=== PATIENT | female | born 1940 | race Caucasian/White ===

== ENCOUNTER 2016-08-05 09:24 | Inpatient (IN) | payer OTHER, BC ==
[~2016-08-05] VITALS: Ht 152.4 cm; Wt 86.8 kg
[~2016-08-05 09:24] MED LIST: ACTOS45 MG PO; AMLODIPINE BESY10 MG PO; Ascorbic Acid,Ester- PO; Benadryl PO; CARVEDILOL12.5 MG PO; CELEBREX200 MG PO; COREG12.5 M1 PO; CRESTOR10 MG PO; CRESTOR5 MG PO; CYMBALTA60 MG PO; Coreg PO; Coumadin,Jantoven PO; Cymbalta PO; DOXYCYCLINE HY100 MG PO; Dulcolax PR; FEOSOL325 MG PO; FUROSEMIDE40 MG PO; Feosol PO; Folvite PO; GLIPIZIDE10 MG PO; GLUCAGEN1 MG IM/SC; GLUCOPHAGE500 MG PO; GLUCOTROL10 MG PO; Glucophage PO; Glucotrol PO; LASIX40 MG PO; LIDODERM 5% P1 PATCH TD; LORAZEPAM0.5 MG PO; LOTREL 10/41 CAPSULE PO; Lasix PO; Lotrel 5/20 PO; MEDROL DOSEPAK4 MG PO; METFORMIN HCL500 MG PO; Maalox, Mylanta PO; Milk Of Magnesia,MOM PO; NOVOLOG PE100 UNITS/ SC; OMEPRAZOLE20 MG PO; OXAYDO5 MG PO; OxyCONTIN PO; PERCOCET 5/31 TABLET PO; PRILOSEC20 MG PO; Protonix PO; SENOKOT S,PE1 TABLET PO; Senokot S,Pericolace PO; THERAGRAN1 TABLET PO; TRADJENTA5 MG PO; Tylenol Regular Stre PO; ZANTAC150 MG PO; oxyCODONE PO
[2016-08-05 11:16] LABS: CARBON DIOXIDE (BICARBONATE) 27.3 MEQ/L (20-31)
[2016-08-05 11:27] LABS: D-DIMER ELISA 2.92 mg/L FEU (< 0.57)
[2016-08-05 11:29] LABS: CHLORIDE 103 mEq/L (99-109); POTASSIUM 4.7 mEq/L (3.7-5.4); SODIUM 138 mEq/L (136-147)
[2016-08-05 11:30] LABS: GLUCOSE 400 mg/dL (70-99)
[2016-08-05 11:32] LABS: ANION GAP 14 MEQ/L (2-14)
[2016-08-05 11:34] LABS: GFR ESTIMATE (CALCULATED) 42 mL/min/
[2016-08-05 11:35] LABS: UREA NITROGEN (BUN) 28 mg/dL (9-23)
[2016-08-05 11:36] LABS: TROP-I INTERPRETATION NEGATIVE; TROPONIN-I 0.04 ng/mL (0.0-0.30)
[2016-08-05 12:36] LABS: HEMATOCRIT 34.5 % (36.0-46.0); MCH 24.9 PG (29.0-34.0); MCHC 31.6 G/DL (30.0-36.0); MCV 78.9 FL (83-99); MEAN PLAT.VOLUME 11.8 uM^3 (9.5-12.4); PLATELET COUNT 233 K/uL (156-360); RBC DIS.WIDTH-CV 15.9 % (11.8-14.6); RBC DIS.WIDTH-SD 45.1 % (39-53); RED BLOOD COUNT 4.37 M/uL (3.80-5.20)
[2016-08-05 12:42] LABS: WHITE BLOOD COUNT 17.3 K/uL (4.1-10.2)
[2016-08-05] MEDS ORDERED: CRESTOR10 MG PO (13:10)
[2016-08-05] MEDS ORDERED: LASIX40 MG PO (13:11)
[2016-08-05] MEDS ORDERED: GLUCOTROL XL10 MG PO (13:13)
[2016-08-05] MEDS ORDERED: GLUCOPHAGE XR,500 MG PO (13:14)
[2016-08-05] MEDS ORDERED: NEOSPORIN + P28.3 GM TP (13:15)
[2016-08-05] MEDS ORDERED: DELTASONE20 M1 PO (13:16)
[2016-08-05] MEDS ORDERED: BACTRIM,SEPT1 TABLET PO (13:17)
[2016-08-05 15:33] LABS: POINT-OF-CARE METER ID UU13113702
[2016-08-05 18:40] LABS: TROP-I INTERPRETATION NEGATIVE; TROPONIN-I 0.06 ng/mL (0.0-0.30)
[2016-08-05 18:48] VITALS: BP 146/65
[2016-08-05 19:40] VITALS: BP 139/67
[2016-08-05 21:37] LABS: METH RESISTANT S AUREUS PCR NEGATIVE (NEGATIVE)
[2016-08-05 21:39] LABS: PROBE CHECK PASS; SPECIMEN PROCESSING CONTROL PASS
[2016-08-06 00:30] VITALS: BP 139/62
[2016-08-06 03:08] LABS: CHLORIDE 102 mEq/L (99-109); POTASSIUM 3.9 mEq/L (3.7-5.4); SODIUM 142 mEq/L (136-147)
[2016-08-06 03:10] LABS: GLUCOSE 173 mg/dL (70-99)
[2016-08-06 03:11] LABS: ANION GAP 14 MEQ/L (2-14)
[2016-08-06 03:13] LABS: GFR ESTIMATE (CALCULATED) 46 mL/min/
[2016-08-06 03:14] LABS: UREA NITROGEN (BUN) 25 mg/dL (9-23)
[2016-08-06 03:18] LABS: TROP-I INTERPRETATION NEGATIVE; TROPONIN-I 0.06 ng/mL (0.0-0.30)
[2016-08-06 04:30] VITALS: BP 153/69
[2016-08-06 08:24] VITALS: BP 143/66
[2016-08-06 08:53] LABS: EOSINOPHIL (%) 0.2 % (0-5); HEMATOCRIT 35.1 % (36.0-46.0); IMMATURE GRANULOCYTE (%) 0.5 % (0.0-0.7); IMMATURE GRANULOCYTE COUNT 0.1 K/uL; INSTRUMENT ABS NEUTROPHIL CT 10.9 K/uL; LYMPHOCYTE COUNT 1.6 K/uL (1.0-2.8); MCH 25.7 PG (29.0-34.0); MCHC 32.2 G/DL (30.0-36.0); MEAN PLAT.VOLUME 11.7 uM^3 (9.5-12.4); MONOCYTE (%) 5.3 % (3-12); MONOCYTE COUNT 0.7 K/uL (0-0.8); NEUTROPHIL (%) 82.1 % (45-76); NEUTROPHIL COUNT 10.9 K/uL (1.8-6.4); PLATELET COUNT 254 K/uL (156-360); RBC DIS.WIDTH-CV 16.2 % (11.8-14.6); RBC DIS.WIDTH-SD 46.3 % (39-53); RED BLOOD COUNT 4.39 M/uL (3.80-5.20); WHITE BLOOD COUNT 13.3 K/uL (4.1-10.2)
[2016-08-06 11:37] VITALS: BP 133/63
[2016-08-06 11:39] LABS: POINT-OF-CARE METER ID UU13113781
[2016-08-06 16:19] VITALS: BP 126/58
[2016-08-06 19:30] VITALS: BP 142/65
[2016-08-07 00:20] VITALS: BP 136/63
[2016-08-07 03:50] VITALS: BP 136/69
[2016-08-07 07:38] LABS: POINT-OF-CARE USER ID ENVKC36
[2016-08-07 07:54] LABS: HEMATOCRIT 36.2 % (36.0-46.0); MCH 24.8 PG (29.0-34.0); MCHC 30.9 G/DL (30.0-36.0); MCV 80.1 FL (83-99); MEAN PLAT.VOLUME 11.8 uM^3 (9.5-12.4); PLATELET COUNT 255 K/uL (156-360); RBC DIS.WIDTH-CV 15.6 % (11.8-14.6); RBC DIS.WIDTH-SD 45.2 % (39-53); RED BLOOD COUNT 4.52 M/uL (3.80-5.20); WHITE BLOOD COUNT 7.1 K/uL (4.1-10.2)
[2016-08-07 08:34] LABS: ANION GAP 10 MEQ/L (2-14); CHLORIDE 97 MEQ/L (99-109); GFR ESTIMATE (CALCULATED) 51 mL/min/; POTASSIUM 4.3 MEQ/L (3.7-5.4); SAMPLE HEMOLYSIS CHECK 0; SAMPLE ICTERIC CHECK 0; SAMPLE LIPEMIA CHECK 0; SODIUM 139 MEQ/L (136-147); UREA NITROGEN (BUN) 26 mg/dL (9-23)
[2016-08-07 08:36] LABS: GLUCOSE 322 mg/dL (70-99)
[2016-08-07 08:45] VITALS: BP 156/69
[2016-08-07 11:19] VITALS: BP 129/60
[2016-08-07 11:27] LABS: POINT-OF-CARE USER ID ENVKC36
[2016-08-07 16:29] VITALS: BP 136/63
[2016-08-07 22:33] VITALS: BP 141/64
[2016-08-08 00:05] VITALS: BP 127/60
[2016-08-08 04:21] VITALS: BP 124/72; BP 139/65
[2016-08-08 06:45] LABS: ANION GAP 9 MEQ/L (2-14); CHLORIDE 97 MEQ/L (99-109); GFR ESTIMATE (CALCULATED) 57 mL/min/; GLUCOSE 263 mg/dL (70-99); MAGNESIUM 1.9 mg/dl (1.3-2.7); SAMPLE HEMOLYSIS CHECK 0; SAMPLE ICTERIC CHECK 0; SAMPLE LIPEMIA CHECK 0; SODIUM 139 MEQ/L (136-147); UREA NITROGEN (BUN) 31 mg/dL (9-23)
[2016-08-08 06:52] LABS: MCH 24.8 PG (29.0-34.0); MCHC 31.1 G/DL (30.0-36.0); MCV 79.5 FL (83-99); MEAN PLAT.VOLUME 11.7 uM^3 (9.5-12.4); PLATELET COUNT 257 K/uL (156-360); RBC DIS.WIDTH-CV 15.8 % (11.8-14.6); RBC DIS.WIDTH-SD 45.3 % (39-53)
[2016-08-08 06:57] LABS: WHITE BLOOD COUNT 10.9 K/uL (4.1-10.2)
[2016-08-08 07:51] VITALS: BP 154/70
[2016-08-08 08:01] LABS: POINT-OF-CARE METER ID UU13113781
[2016-08-08] MEDS ORDERED: DOXYCYCLINE HY100 M3 PO (09:09)
[2016-08-08] MEDS ORDERED: FUROSEMIDE40 MG PO (09:09)
[2016-08-08] MEDS ORDERED: LISINOPRIL10 MG PO (09:09)
[2016-08-08] MEDS ORDERED: CEFTIN500 MG PO (09:09)
[2016-08-08] MEDS ORDERED: PREDNISONE10 MG PO (09:09)
== END 2016-08-08 12:25 | disposition home or self-care (01) | DRG 189 ==
LOC: EME → EDBD 09:24 → EME 09:24 → EDOF 12:47 → 4EAST 12:47
PROVIDERS: Emergency Medicine; Hospitalist; Internal Medicine
PROC: 5A0935Z Assistance with Respiratory Ventilation, Less than 24 Consecutive Hours (ICD-10-PCS; principal; 2016-08-05)
DX: J96.01 Acute respiratory failure with hypoxia (principal); I10 Essential (primary) hypertension; I11.0 Hypertensive heart disease with heart failure; I50.1 Left ventricular failure, unspecified; J90 Pleural effusion, not elsewhere classified; J18.9 Pneumonia, unspecified organism; I87.8 Other specified disorders of veins; E11.65 Type 2 diabetes mellitus with hyperglycemia; I27.2 Other secondary pulmonary hypertension; E11.8 Type 2 diabetes mellitus with unspecified complications; I50.31 Acute diastolic (congestive) heart failure; E78.5 Hyperlipidemia, unspecified; F32.9 Major depressive disorder, single episode, unspecified; I44.7 Left bundle-branch block, unspecified; D50.9 Iron deficiency anemia, unspecified; T38.0X5A Adverse effect of glucocorticoids and synthetic analogues, initial encounter; I25.2 Old myocardial infarction; Z88.0 Allergy status to penicillin; D72.829 Elevated white blood cell count, unspecified; J96.21 Acute and chronic respiratory failure with hypoxia; Z77.22 Contact with and (suspected) exposure to environmental tobacco smoke (acute) (chronic)
CPT/HCPCS: 71010; 78580; 80048; 82803; 82948; 83605; 83735; 83880; 84484; 85025; 85027; 85379; 87040; 87641; 93005; 93306; 94640; 94799; 99202; 99281; 99285; A9540; J0171; J0696; J1644; J1815; J1940; J2920; J7050; J7512; J7644